=== PATIENT | female | born 1945 | race Caucasian/White ===

== ENCOUNTER 2016-10-28 10:33 | Outpatient (CLI) | payer MEDICARE, BC ==
--- NOTE | 2016-10-28 13:03 | Mammography Report ---
DIGITAL SCREENING MAMMOGRAM: 10/28/2016 COMPARISON: 09/12/2013, 06/02/2011, 12/03/2009, and 10/31/2008 TECHNIQUE: Bilateral digital CC and MLO projections are performed. FINDINGS: There are scattered fibroglandular densities. A nodular density in the 6 o'clock position of the right breast with associated benign-appearing calcifications is stable. There is no new claudia nant mass, architectural distortion, skin thickening, suspicious microcalcifications, or significant interval change. IMPRESSION: NEGATIVE. BIRADS CATEGORY 1. SUGGEST RETURN TO ROUTINE SCREENING IN 12 MONTHS. STANDARD QUALIFYING STATEMENTS 1. This examination was reviewed with the aid of Computer-Aided Detection (CAD). 2. A negative or benign imaging report should not delay biopsy if clinically suspicious findings are present. Consider surgical consultation if warranted. More than 5% of cancers are not identified by i maging. 3. Dense breasts may obscure an underlying neoplasm. JOB #: [id number] EXT JOB #:[id number]
== END 2016-10-28 10:34 | disposition home or self-care (01) ==
LOC: DI.N 10:33
PROVIDERS: ATTEND Family Medicine
DX: Z12.31 Encounter for screening mammogram for malignant neoplasm of breast (principal)
CPT/HCPCS: 77067

== ENCOUNTER 2017-02-16 13:19 | Outpatient (CLI) | payer MEDICARE, BC ==
--- NOTE | 2017-02-16 21:01 | CT Report ---
DATE OF SERVICE: 02/16/2017 CT THORACIC SPINE WITHOUT CONTRAST: 02/16/2017 CLINICAL INDICATION: Thoracic pain. Axial CT images of the thoracic spine were obtained without intravenous contrast. In accordance with CT protocol optimization, one or more of the following dose reduction techniques were utilized for this exam: Automated exposure control, adjustment of mA and/or KV based on patient size, or use of iterative reconstructive technique. No previous CT is available for comparison. The thoracic vertebral bodies demonstrate normal height and alignment. The disk spaces demonstrate mild degenerative changes. There is no evidence of compression fracture or subluxation. The visualized lungs demonstrate minimal atelectasis. IMPRESSION: Mild degenerative disk disease. No evidence of fracture. TD: 02/16/2017 22:00
== END 2017-02-16 13:20 | disposition home or self-care (01) ==
LOC: LAB 13:19
PROVIDERS: ATTEND Specialist
DX: M51.34 Other intervertebral disc degeneration, thoracic region (principal)
CPT/HCPCS: 36415; 72128; 82565

== ENCOUNTER 2017-04-13 11:09 | Outpatient (CLI) | payer MEDICARE, BC | END 2017-04-13 11:10 | disposition home or self-care (01) | LOC: DI 11:09 | PROVIDERS: ATTEND Internal Medicine Cardiovascular Disease | DX: R06.00 Dyspnea, unspecified (principal) | CPT/HCPCS: 93306 ==

== ENCOUNTER 2022-04-08 12:59 | Outpatient (CLI) | payer MEDICARE, BC ==
--- NOTE | 2022-04-08 15:12 | CT Report ---
PROCEDURE: MAXILLOFACIAL WO INDICATIONS: RIGHT TMJ PAIN TECHNIQUE: Noncontrast 1.5 mm thick axial images acquired from the mandible through the frontal sinuses, with co julieta and sagittal reformatting. For radiation dose reduction, the following was used: automated ex posure control, adjustment of mA and/or kV according to patient size. COMPARISON: None. FINDINGS: Image quality: Excellent. Bones and teeth: In this patient with this given history, scrutiny is given to the temporomandibular joints. The temporomandibular joints demonstrate mild degenerative changes, which are considered to be within normal limits for age. Visualized portions of the mandible demonstrate no fractures or subl uxation. Orbital paul are intact. Sinus paul show no fracture or deformity. Nasal bones and septum are int act. Zygomatic arches are intact. Pterygoid plates are intact. Visualized portions of the skull ba se and auditory canals are intact. 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 Sinuses: Paranasal sinuses are aerated, without fluid levels, mucosal thickening, or mucoceles. Mas toid air cells are aerated. Soft tissues: No edema, masses, or fluid collections. No enlarged lymph nodes. No soft tissue lace rations or debris. Vascular: Visualized vascular structures appear normal in the absence of contrast. Bony vascular fo ramina and canals are intact. IMPRESSION: No significant CT abnormality of the temporomandibular joints can be seen. If it would be helpful for clinical management decision making, please consider a dedicated TMJ pk col MRI (with open-mouth views and closed mouth views) for further evaluation (assuming that there is no contraindication). Reviewed by: Francisco Javier Vegas MD on 04/08/2022 2:10 PM [facility] Approved by: Francisco Javier Vegas MD on 04/08/2022 2:10 PM [facility] Station ID: [id number]
== END 2022-04-08 13:00 | disposition home or self-care (01) ==
LOC: DI 12:59
PROVIDERS: ATTEND Student in an Organized Health Care Education/Training Program
DX: M26.621 Arthralgia of right temporomandibular joint (principal)

== ENCOUNTER 2022-11-25 12:23 | Day surgery (SDC) | payer MEDICARE, BC ==
[2022-11-25] MEDS ORDERED: LACTATED RINGERS 1,000 ML IV ONE ×2 (12:27→14:09)
[2022-11-25] MEDS ORDERED: PROPOFOL 500 MG/50 ML 500 MG/50 ML VIAL ONE (13:01)
[2022-11-25] MEDS ORDERED: LIDOCAINE-PF 2% 10 ML AMP SUBQ ONE (13:01)
--- NOTE | 2022-11-25 13:42 | ANESTHESIA ---
Pre-Anesthesia VS, & Labs - Diagnosis GERD - Procedure EGD Vital Signs: Temp Pulse Resp BP Pulse Ox O2 Flow Rate 36.3 C L 71 14 123/87 H 95 11/25/22 12:27 11/25/22 12:27 11/25/22 12:27 11/25/22 12:27 11/25/22 12:27 Height: 5 ft 6 in Weight (kg): 74.6 kg Body Mass Index: 26.5 BMI Classification: Overweight - NPO >8 hours - Is Patient ?: No - Lab Results Lab results reviewed: Yes Home Medications and Allergies Home Medications: Ambulatory Orders Albuterol Oral Soln [Ventolin] 1 puffs INH PRN PRN 11/25/22 Alendronate Sodium 70 mg PO DAILY 11/25/22 Escitalopram Oxalate 5 mg PO DAILY 11/25/22 LORazepam [Lorazepam] 1 mg PO HS 11/25/22 Lisinopril [Zestril] 10 mg PO DAILY 11/25/22 oxyBUTYnin chloride [Oxybutynin Chloride] 5 mg PO DAILY 11/25/22 Albuterol Oral Soln [Ventolin] 1 puffs INH PRN PRN 11/25/22 Alendronate Sodium 70 mg PO DAILY 11/25/22 Escitalopram Oxalate 5 mg PO DAILY 11/25/22 LORazepam [Lorazepam] 1 mg PO HS 11/25/22 Lisinopril [Zestril] 10 mg PO DAILY 11/25/22 oxyBUTYnin chloride [Oxybutynin Chloride] 5 mg PO DAILY 11/25/22 Allergies/Adverse Reactions: Allergies Allergy/AdvReac Type Severity Reaction Status Date / Time No Known Drug Allergies Allergy Verified 11/24/22 13:24 Anes History & Medical History - Anesthetic History Anesthesia Complications: reports: No previous complications Family history of Anesthesia Complications: Denies Family history of Malignant Hyperthermia: Denies - Medical History Cardiovascular: reports: Hypertension Pulmonary: reports: Asthma Gastrointestinal: reports: GERD Neuro: reports: Multiple sclerosis Musculoskeletal: reports: Other Smoking Status: Never smoker Exam General: Alert, Oriented x3, Cooperative Dental: WNL Mouth Openin Fingerbreadth Neck Mobility: Normal Mallampati classification: II Thyromental Distance: 4-6 cm Respiratory: Lungs clear Cardiovascular: Regular rate Plan Anesthesia Type: General, MAC Consent for Procedure(s) Verified and Reviewed: Yes Code Status: Attempt Resuscitation ASA classification: 2-Mild systemic disease Is this case an emergency?: No
--- NOTE | 2022-11-25 14:29 | ANESTHESIA POST OP EVALUATION ---
Anesthesia Post Eval - Post Anesthesia Eval Vitals: Last Vital Signs Temp 36.0 C L 11/25/22 14:09 Pulse 63 11/25/22 14:09 Resp 15 11/25/22 14:09 BP 90/61 11/25/22 14:09 Pulse Ox 100 11/25/22 14:09 O2 Flow Rate CV Function Including HR & BP: Stable Pain Control: Satisfactory Nausea & Vomiting: Negative Mental Status: Baseline Respiratory Status: Airway Patent Hydration Status: Satisfactory Anesthesia Complications: None
[2022-11-25 14:38] VITALS: BP 113/73; O2SAT 99
== END 2022-11-25 12:24 | disposition home or self-care (01) ==
LOC: SDS 12:23
PROVIDERS: ATTEND Surgery
PROC: 0DB78ZX Excision of Stomach, Pylorus, Via Natural or Artificial Opening Endoscopic, Diagnostic (ICD-10-PCS; 2022-11-25)
PROC: 0DB68ZX Excision of Stomach, Via Natural or Artificial Opening Endoscopic, Diagnostic (ICD-10-PCS; 2022-11-25)
PROC: 0DB58ZX Excision of Esophagus, Via Natural or Artificial Opening Endoscopic, Diagnostic (ICD-10-PCS; principal; 2022-11-25 14:00)
DX: K25.9 Gastric ulcer, unspecified as acute or chronic, without hemorrhage or perforation (principal); K29.50 Unspecified chronic gastritis without bleeding; K21.9 Gastro-esophageal reflux disease without esophagitis; R12 Heartburn; R49.0 Dysphonia; J45.909 Unspecified asthma, uncomplicated
CPT/HCPCS: 43239; J7120

== ENCOUNTER 2022-12-26 10:53 | Outpatient (CLI) | payer MEDICARE, BC ==
[2022-12-26] MEDS ORDERED: ALBUTEROL 1 PUFF INH STA (13:48)
== END 2022-12-26 10:54 | disposition home or self-care (01) ==
LOC: RT 10:53
PROVIDERS: ATTEND Student in an Organized Health Care Education/Training Program
DX: J45.909 Unspecified asthma, uncomplicated (principal)
CPT/HCPCS: 94060; 94727; 94729